=== PATIENT | female | born 1965 | race Caucasian/White ===

== ENCOUNTER 2020-04-05 13:51 | Outpatient (CLI) | payer BC | END 2020-04-05 13:52 | disposition home or self-care (01) | LOC: DTY/OP 13:51 | PROVIDERS: ATTEND Specialist | DX: Z01.818 Encounter for other preprocedural examination (principal); E66.01 Morbid (severe) obesity due to excess calories | CPT/HCPCS: 97802 ==

== ENCOUNTER 2021-12-25 12:30 | Outpatient (CLI) | payer BC ==
[2021-12-25] MEDS ORDERED: Magnevist 469MG/ML 20 ML VIAL ONE (14:35)
== END 2021-12-25 12:31 | disposition home or self-care (01) ==
LOC: TBSIIMAG 12:30
PROVIDERS: ATTEND Neurological Surgery
DX: R22.42 Localized swelling, mass and lump, left lower limb (principal); S73.102A Unspecified sprain of left hip, initial encounter
CPT/HCPCS: A9579

== ENCOUNTER 2022-01-03 11:39 | Outpatient (CLI) | payer BC ==
[2022-01-03 13:10] LABS: Anion Gap 16 mmol/L (10-20); BUN (Urea Nitrogen) 8 mg/dL (9.8-20.1); Calc. Creatinine Clearance 0 mL/min (70-130); Calcium 9.4 mg/dL (7.8-10.44); Carbon Dioxide 24 mmol/L (22-29); Chloride 104 mmol/L (98-107); Estimated GFR 91; Glucose 82 mg/dL (70-105); Potassium 3.8 mmol/L (3.5-5.1); Sodium 140 mmol/L (136-145)
== END 2022-01-03 11:40 | disposition home or self-care (01) ==
LOC: LABBT 11:39
PROVIDERS: ATTEND Neurological Surgery
DX: M54.12 Radiculopathy, cervical region (principal); Z20.822 Contact with and (suspected) exposure to COVID-19
CPT/HCPCS: 80048; 87811; 93005; 93010

== ENCOUNTER 2022-01-08 06:47 | Day surgery (SDC) | payer BC ==
[2022-01-06 13:29] VITALS: BMI 40.4
[2022-01-08] MEDS ORDERED: Lidocaine 1% MPF 2 ML VIAL ONE (07:31)
[2022-01-08] MEDS ORDERED: CEFAZOLIN 2 GM VIAL ONE (07:31)
[2022-01-08] MEDS ORDERED: Sodium Chloride 0.9% 100 ML ONE (07:31)
[2022-01-08] MEDS ORDERED: Ondansetron PF 4 MG/2 ML Vial ONE (09:12)
[2022-01-08] MEDS ORDERED: Vecuronium 10 MG VIAL ONE (09:12)
[2022-01-08] MEDS ORDERED: Dexamethasone 20 MG/5 ML VIAL ONE (09:12)
[2022-01-08] MEDS ORDERED: Succinylcholine 200 MG/10 ml SYRINGE FS ONE (09:12)
[2022-01-08] MEDS ORDERED: NEOSTIGMINE 3 MG/3 ML SYR 3 MG/3 ML SYRINGE ONE (09:12)
[2022-01-08] MEDS ORDERED: PROPOFOL 200 MG/20 ML VIAL ONE (09:12)
[2022-01-08] MEDS ORDERED: Glycopyrrolate 0.2 MG/ML 5 ML SYRINGE ONE (09:12)
[2022-01-08] MEDS ORDERED: Phenylephrine 10 MG/ML VIAL ONE (09:12)
[2022-01-08] MEDS ORDERED: fentaNYL Citrate/PF 100 MCG/2 ML SYRINGE ONE (09:18)
[2022-01-08] MEDS ORDERED: HYDROmorphone 2 MG/ML VIAL ONE (09:38)
[2022-01-08] MEDS ORDERED: SUGAMMADEX SODIUM 200 MG/2 ML VIAL ONE (09:52)
[2022-01-08] MEDS ORDERED: Ketorolac Tromethamine 30 MG/ML VIAL ONE (11:15)
[2022-01-08] MEDS ORDERED: CEFAZOLIN 1 GM VIAL ONE (13:57)
== END 2022-01-08 14:10 | disposition home or self-care (01) ==
LOC: SDC 06:47
PROVIDERS: ATTEND Neurological Surgery
PROC: 0RG20A0 Fusion of 2 or more Cervical Vertebral Joints with Interbody Fusion Device, Anterior Approach, Anterior Column, Open Approach (ICD-10-PCS; principal; 2022-01-08)
DX: M54.12 Radiculopathy, cervical region (principal); M48.02 Spinal stenosis, cervical region; G95.9 Disease of spinal cord, unspecified; I10 Essential (primary) hypertension; E03.9 Hypothyroidism, unspecified; F17.200 Nicotine dependence, unspecified, uncomplicated; Z79.890 Hormone replacement therapy; Z79.899 Other long term (current) drug therapy; Z91.018 Allergy to other foods
CPT/HCPCS: 76000; C1713; J0690; J1100; J1170; J1885; J2370; J2405; J2704; J3490

== ENCOUNTER 2023-05-19 12:24 | Outpatient (CLI) | payer BC | END 2023-05-19 12:25 | disposition home or self-care (01) | LOC: BICRAD 12:24 | PROVIDERS: ATTEND Family Medicine | DX: J40 Bronchitis, not specified as acute or chronic (principal) | CPT/HCPCS: 71046 ==